=== PATIENT | female | born 1995 | race Caucasian/White ===

== ENCOUNTER 2024-08-13 08:28 | Outpatient (REF) | payer OTHER, SELFPAY ==
--- NOTE | ~2024-08-13 | US_ITS ---
EXAMINATION: US OBSTETRICAL ULTRASOUND CLINICAL INFORMATION: Status post elective termination. Vaginal bleed. COMPARISON: None available. LMP: Unknown. Positive hCG. TECHNIQUE: Real-time transabdominal and transvaginal pelvic ultrasound using grayscale and color Doppler technique. FINDINGS: Uterus measures 9 x 4 x 4 cm. Volume: 88 cc. The endometrial stripe is thickened and heterogeneous measuring 1.6 cm in maximum thickness. No intrauterine gestational sac. Right ovary measures 5 x 4 x 3 cm. Volume: 31 cc. There is a 4.6 cm complex septated anechoic lesion without flow on color Doppler interrogation. There is flow on color Doppler to the right ovary. Left ovary measures 2 x 2 x 2 cm. Volume: 4 cc. Scattered follicles. There is flow on color Doppler interrogation to the ovary. Small trace volume free fluid in the cul-de-sac. US/US OB pelvic and transvaginal IMPRESSION: Probable blood products within the uterine cavity. Residual products of conception's are not fully detected. 4.6 cm complex septated cystic lesion, right ovary. No ovarian torsion. Small volume of free fluid in the cul-de-sac. Electronically signed by: Arturo Mcfarland MD 08/13/2024 11:41 AM EDT
--- OUTSIDE RECORDS SUMMARY | 2024-08-13 08:48 | XMS_ITS | Encounter Summary ---
Author Organization [facility] Address [address] [place] [phone] Phone Care Team Providers Care Cad Engineer Name Role Phone Whitney Garza MD Primary Care Provider [phone] Eliana Russ MD Primary Care Provider + Encounter Details Date Type Department Care Team (Late st Contact Info) Description 06/02/2017 Ancillary Orders Virtual Department [address] [place] [address] Eliana Russ MD [address] [place] [phone] [email or web address] Abdominal distension Social History Tobacco Use Types Packs/Day Years Used Date Smoking Tobacco: Never Assessed Sex and Gender Information Value Date Recorded Sex Assigned at Not on file Gender Identity Not on file Sexual Orientation Not on file documented as of this encounter Plan of Treatment Not on file documented as of this encounter Visit Diagnoses Diagnosis Abdominal distension Flatulence, eructation, and gas pain documented in this encounter Care Teams Cad Engineer Relationship Specialty Start Date End Date Whitney Garza MD [address] [place] [address] PCP - General 04/20/17 01/18/22 Eliana Russ MD [address] [place] [id number] PCP - General Family Medicine 01/19/22 documented as of this encounter Additional Source Comments The information contained in this document represents components of the legal health record. It is not the complete legal health record.[facility]
--- OUTSIDE RECORDS SUMMARY | 2024-08-13 08:48 | XMS_ITS | Encounter Summary ---
Author Organization [facility] Address [address] [facility] [address] [place] [phone] Phone Care Team Providers Care Retail Cashier Name Role Phone Whitney Garza MD Primary Care Provider Eliana Russ MD Primary Care Provider + Encounter Details Date Type Department Care Team (Late st Contact Info) Description 05/17/2017 Ancillary Orders Virtual Department [address] [place] [address] Eliana Russ MD [address] [place] [phone] [email or web address] Abdominal bloating Social History Tobacco Use Types Packs/Day Years Used Date Smoking Tobacco: Never Assessed Sex and Gender Information Value Date Recorded Sex Assigned at Not on file Gender Identity Not on file Sexual Orientation Not on file documented as of this encounter Plan of Treatment Not on file documented as of this encounter Results * US Abdomen Complete (06/02/2017 1:48 PM EST) Anatomical Region Laterality Modality Abdomen Ultrasound 06/02/2017 1:51 PM EST Impressions 06/02/2017 1:52 PM EST No abnormality detected in the visualized abdominal visceral structures. POS [id number] Narrative 06/02/2017 1:52 PM EST COMPARISON: ??None FINDINGS: Liver: Parenchyma appears homogeneous without lesions detected. Gallbladder/Biliary Tree: Gallbladder lumen appears clear without wall thickening or pericholecystic fluid. No intra or extrahepatic biliary ductal dilatation.The common bile duct measures 0.3 cm. Pancreas: No abnormality detected in the visualized pancreas. Spleen: Homogeneous and not enlarged. ??It is measured at 9.5 cm. Kidneys: Normal in size with the right measuring 9.1 x 3.9 cm and the left measuring 10.2 x 4.1 cm. ??No hydronephrosis, focal lesions, or shadowing stones. Upper abdominal aorta/IVC: ??No abnormality detected in the visualized portions. Procedure Note Aurora Reed MD - 06/02/2017 COMPARISON: None FINDINGS: Liver: Parenchyma appears homogeneous without lesions detected. Gallbladder/Biliary Tree: Gallbladder lumen appears clear without wallthickening or pericholecystic fluid. No intra or extrahepatic biliaryductal dilatation.The common bile duct measures 0.3 cm. Pancreas: No abnormality detected in the visualized pancreas. Spleen: Homogeneous and not enlarged. It is measured at 9.5 cm. Kidneys: Normal in size with the right measuring 9.1 x 3.9 cm and the leftmeasuring 10.2 x 4.1 cm. No hydronephrosis, focal lesions, or shadowingstones. Upper abdominal aorta/IVC: No abnormality detected in the visualizedportions. IMPRESSION: No abnormality detected in the visualized abdominal visceral structures. POS [id number] Eliana Russ MD IMG US ABDOMEN documented in this encounter Visit Diagnoses Diagnosis Abdominal bloating Flatulence, eructation, and gas pain Abdominal bloating Flatulence, eructation, and gas pain documented in this encounter Care Teams Retail Cashier Relationship Specialty Start Date End Date Whitney Garza MD [address] [place] [phone] PCP - General 04/20/17 01/18/22 Eliana Russ MD [address] [place] [id number] PCP - General Family Medicine 01/19/22 documented as of this encounter Additional Source Comments The information contained in this document represents components of the legal health record. It is not the complete legal health record.[facility]
--- OUTSIDE RECORDS SUMMARY | 2024-08-13 08:48 | XMS_ITS | Clinical Summary ---
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 Low titer speckled PEPPER is non-specific and there is no historical, physical, or other serologic evidence s/o connective tissue disease. Photographs of malar erythema provided by patient today are atypical for SLE rash. Left wrist sxs would also be an extremely unusual SLE manifestation. Discussed with patient additional testing for selected ENAs for completeness though I think this is not truly necessary and we deferred today. Happy to re-evaluate for any clinically significant change. Chronic pain of left wrist 11/02/2023 Assessment & Plan (11/02/2023 11:27 AM EDT): Episodic painful ulnar deviation left wrist of 1-2 wks in duration; w/u to date w/o clearly identified dx. Dr. Garcia's notes reviewed ? ECU spasm. Again, no clinical evidence s/o underlying inflammatory arthritis or connective tissue disease. Patient will continue left wrist bracing as recommended and f/u with Dr. Garcia. Family History Medical History Relation Comments Hypertension Father Breast cancer Maternal Aunt Skin cancer Maternal Aunt Diabetes mellitus Maternal Grandmother Diabetes mellitus Mother Relation Status Comments Father Alive Maternal Aunt Maternal Grandmother Mother Alive Social History Tobacco Use Types Packs/Day Years Used Date Smoking Tobacco: Never Smokeless Tobacco: Never Tobacco Cessation:Counseling Given: Not Answered Alcohol Use Standard Drinks/Week Comments Not Currently 0 (1 standard drink = 0.6 oz pur e alcohol) Education Answer Date Recorded Are you interested in more education? Not on mariangel e 08/12/2022 Are you concerned about learning? Not on file 08/12/2022 No 08/12/2022 No 08/12/2022 Digital Access Answer Date Recorded No 09/09/2022 No 09/09/2022 Reliable internet access at home? Not on file 09/09/2022 Device with a working camera? Not on file Sex and Gender Information Value Date Recorded Sex Assigned at Not on file Gender Identity Not on file Sexual Orientation Not on file Last Filed Vital Signs Vital Sign Reading Time Taken Comments Blood Pressure 104/64 11/02/2023 10:23 AM EDT Pulse 84 11/02/2023 10:23 AM EDT Temperature - - Respiratory Rate - - Oxygen Saturation 99% 11/02/2023 10:23 AM EDT Inhaled Oxygen Concentration - - Weight 55.6 kg (122 lb 9.6 oz) 11/02/2023 10:23 AM EDT Height 157.5 cm (5' 2.01 ) 11/02/2023 10:23 AM E DT Body Mass Index 22.42 11/02/2023 10:23 AM EDT Plan of Treatment Health Maintenance Due Date Last Done Comments DEPRESSION SCREENING 2009 HEPATITIS C SCREENING 2015 HIV ONE-TIME SCREENING (18-6 5 YEARS) 2015 PAP SMEAR 2018 COVID-19 VACCINE (3 2023-2 5 season) 2023 11/12/2020, 10/13/2020 Adult Td,Tdap Booster 07/04/2028 07/04/2018 SMOKING STATUS SCREENING (On ce After 26 Yrs) Completed 11/02/2023 HEPATITIS A VACCINES Aged Out No long er eligible based on patient's age to complete this topic HIB VACCINES Aged Out No longer eligi ble based on patient's age to complete this topic MENINGOCOCCAL VACCINES (ACWY) Aged Out No longer eligible based on patient's age to complete this topic PNEUMOCOCCAL VACCINES (0-49 years) Aged Out No longer eligible b ased on patient's age to complete this topic Medical Devices Not on file Kudrikzain, Polly Personal/Famil y Self 1995 [address] [facility] [address] Kudrikow, Polly Personal/Famil y Self 1995 [address] [facility] [address] Kudrikow, Polly Personal/Famil y Self 1995 [address] [facility] [place] [address] Kudrikow, Polly Personal/Famil y Self 1995 [address] [facility] [address] Kudrikow, Polly Personal/Famil y Self 1995 [address] [facility] [place] [address] Kudrikow, Polly Personal/Famil y Self [address] [place] [address] [facility] [place] [address] Kudrikow, Polly Personal/Famil y Self [address] [place] [address] [facility] [place] [address] Kudrikow, Polly Personal/Famil y Self [address] [place], [place] [address] [place] [address] Care Teams Grades 1 Thru 6 Visiting Teacher Relationship Specialty Start Date End Date Eliana Russ MD [address] [place] [phone] [email or web address] PCP - General Family Medicine 01/19/22 Additional Source Comments The information contained in this document represents components of the legal health record. It is not the complete legal health record.[facility]
--- OUTSIDE RECORDS SUMMARY | 2024-08-13 08:48 | XMS_ITS | Encounter Summary ---
Author Organization [facility] Address [address] [address] Phone Care Team Providers Care Retail Inventory Control Clerk Name Role Phone Eliana Russ MD Primary Care Provider + Encounter Details Date Type Department Care Team (Late st Contact Info) Description 10/05/2023 Procedure Pass [address] [place] [address] Social History Tobacco Use Types Packs/Day Years Used Date Smoking Tobacco: Never Smokeless Tobacco: Never Alcohol Use Standard Drinks/Week Comments Not Currently [...] documented as of this encounter Visit Diagnoses Not on filedocumented in this encounter Care Teams Retail Inventory Control Clerk Relationship Specialty Start Date End Date Eliana Russ MD [address] [place] [address] [place] [address] PCP - General Family Medicine 10/5/22 documented as of this encounter Additional Source Comments The information contained in this document represents components of the legal health record. It is not the complete legal health record.[facility]
== END 2024-08-13 08:29 | disposition home or self-care (01) ==
LOC: HO.UMASIMG 08:28
PROVIDERS: Visit Provider Family Medicine
DX: Z33.2 Encounter for elective termination of pregnancy (principal)
CPT/HCPCS: 76801; 76817

== ENCOUNTER → 2024-08-13 10:30 | Outpatient (BNV) | payer OTHER, SELFPAY | PROVIDERS: Visit Provider Radiology Diagnostic Radiology | DX: N83.291 Other ovarian cyst, right side (principal); Z33.2 Encounter for elective termination of pregnancy | CPT/HCPCS: 76801; 76817 ==